=== PATIENT | male | born 1945 | race Hispanic/Latino ===

== ENCOUNTER 2022-08-01 15:31 | Inpatient (IN) | payer MEDICARE ==
[~2022-08-01] VITALS: Ht 160 cm; Wt 71.7 kg
[2022-08-01] MEDS ORDERED: ALBUMIN (HUMAN) 25% 50 ML IV ONE (15:45)
[2022-08-01] MEDS ORDERED: LIDOCAINE PF 100MG/5ML (2%) SYRINGE 5ML IVP ONE (15:45)
[2022-08-01] MEDS ORDERED: PHENYLEPHRINE HCL 10 MG/ML 1ML VIAL IV ONE (15:45)
[2022-08-01] MEDS ORDERED: AMINOCAPROIC ACID 5,000MG VIAL IV ONE (15:45)
[2022-08-01] MEDS ORDERED: CACL 1GM SYG IVP ONE (15:45)
[2022-08-01] MEDS ORDERED: HEPARIN 10,000 UNIT/10ML (1,000 UNIT/ML) VIAL IV ONE (15:45)
[2022-08-01] MEDS ORDERED: MAGNESIUM SULFATE 1 GM/2 ML VIAL IM ONE (15:45)
[2022-08-01] MEDS ORDERED: SODIUM BICARB 8.4% 50ML SYRINGE IVP ONE (15:45)
[2022-08-01 17:44] VITALS: BP 141/71
[2022-08-01] MEDS ORDERED: ACETAMINOPHEN 650 MG SUPPOSITORY RC PRN (18:30)
[2022-08-01] MEDS ORDERED: ACETAMINOPHEN 325 MG TAB PO PRN (18:30)
[2022-08-01] MEDS ORDERED: HYDRALAZINE 20MG/ML VIAL IV PRN (18:30)
[2022-08-01] MEDS ORDERED: TEMAZEPAM 15 MG CAPSULE PO PRN (18:30)
[2022-08-01] MEDS ORDERED: CLONIDINE HCL 0.1 MG TABLET PO PRN (18:30)
[2022-08-01] MEDS ORDERED: LABETALOL 20MG SYG IV PRN (18:30)
[2022-08-01] MEDS ORDERED: ONDANSETRON 4MG INJ IVP PRN (18:30)
[2022-08-01] MEDS ORDERED: DOCUSATE SODIUM 100 MG CAP PO PRN (18:30)
[2022-08-01 20:18] VITALS: BP 174/84
[2022-08-01] MEDS ORDERED: ATORVASTATIN 40 MG TABLET PO SCH (21:00)
[2022-08-01] MEDS ORDERED: GUAIFENESIN-DM 200/20 MG 10 ML PO PRN (23:00)
[2022-08-02] VITALS (32 sets, daily range): BP systolic 44–209; BP diastolic 28–116
[2022-08-02 00:40] LABS: ABG BASE EXCESS 2.7 mmol/L (-2.0-3.0); ABG HCO3 27.7 mmol/L (21.0-28.0); ABG PCO2 44 mmHg (35-48)
[2022-08-02] MEDS: IPRATROPIUM 0.5 MG/2.5 ML INH IH SCH ×3 (00:45→10:57)
[2022-08-02 04:42] LABS: HEMATOCRIT 41.1 % (42-54); MEAN CORPUSCULAR HEMOGLOBIN 28.6 pg (27.0-33.0); MEAN CORPUSCULAR HGB CONC 31.1 g/dL (32.0-36.0); MEAN CORPUSCULAR VOLUME 91.9 fL (79-99); RED BLOOD CELL COUNT(AUTO) 4.47 MIL/uL (4.50-6.20); RED CELL DISTRIBUTION WIDTH 13.4 % (11.0-15.5); WHITE BLOOD COUNT (AUTO) 6.1 K/uL (4.8-10.8)
[2022-08-02 04:57] LABS: HEMOGLOBIN A1C 5.8 % (4.0-6.0)
[2022-08-02 05:05] LABS: PROTHROMBIN TIME 10.9 SEC (9.6-11.6)
[2022-08-02 05:06] LABS: CREATININE 0.8 mg/dL (0.5-1.5); PARTIAL THROMBOPLASTIN TIME 30.8 SEC (26.3-35.5); POTASSIUM 3.8 mmol/L (3.5-5.1)
[2022-08-02 05:16] LABS: ALBUMIN 2.8 g/dL (3.5-5.0); MAGNESIUM 2.2 mg/dL (1.80-2.40); THYROID STIMULATING HORMONE 1.93 uIU/mL (0.36-3.74); TOTAL PROTEIN, SERUM 6.5 g/dL (6.0-8.3)
[2022-08-02] MEDS ORDERED: NOREPINEPHRINE BITARTRATE 8 MG in 0.9% NACL 250ML 250 ML IV PRN (09:00)
[2022-08-02] MEDS ORDERED: EPINEPHRINE PF 1MG (1:1,000) 10 MG in 0.9% NACL 250ML 240 ML IV PRN ×2 (09:00→15:00)
[2022-08-02] MEDS ORDERED: AMINOCAPROIC ACID 5,000MG VIAL 15,000 MG in 0.9% NACL 500ML IV.SOLN 420 ML IV PRN (09:00)
[2022-08-02] MEDS ORDERED: METOPROLOL TARTRATE 25 MG TAB PO SCH (09:30)
[2022-08-02] MEDS ORDERED: CEFAZOLIN SODIUM 1 GM VIAL ONE (10:53)
[2022-08-02] MEDS ORDERED: PAPAVERINE HCL 30 MG/ML 2ML VIAL ONE (10:54)
[2022-08-02] MEDS ORDERED: MANNITOL 20% 500ML BAG 500 ML IV ONE (12:54)
[2022-08-02] MEDS ORDERED: DELNIDO FORMULA 1 BAG IV ONE (12:55)
[2022-08-02] MEDS ORDERED: CEFAZOLIN SODIUM 1 GM VIAL IVP SCH (13:00)
[2022-08-02] MEDS ORDERED: NITROGLYCERIN 50MG/D5W 250ML 1 BOT ONE (13:10)
[2022-08-02] MEDS ORDERED: 0.9%NACL 1000ML 1,000 ML IV ONE ×2 (13:14→13:24)
[2022-08-02] MEDS ORDERED: CEFAZOLIN SODIUM 2 GM VIAL ONE (13:24)
[2022-08-02] MEDS ORDERED: FUROSEMIDE 20MG VIAL IV SCH (13:30)
[2022-08-02] MEDS ORDERED: POTASSIUM CHLORIDE 10% ELIXIR 20 MEQ/15 ML UDCUP PO PRN (13:30)
[2022-08-02] MEDS ORDERED: POTASSIUM CHLORIDE 20MEQ/100ML 100 ML IV PRN ×2 (13:30)
[2022-08-02] MEDS ORDERED: KCL 20 MEQ ERTAB PO PRN (13:30)
[2022-08-02] MEDS ORDERED: LIDOCAINE HCL-MPF 1% 2ML VIAL IV PRN ×2 (13:30)
[2022-08-02] MEDS ORDERED: PROPOFOL 10 MG/ML 20ML VIAL IV ONE ×2 (13:55→17:43)
[2022-08-02] MEDS ORDERED: FENTANYL CITRATE PF 50 MCG/1 ML 20ML VIAL IJ ONE (13:55)
[2022-08-02] MEDS ORDERED: ROCURONIUM 10MG/1ML SYR 10 MG/ML ML ONE (13:56)
[2022-08-02] MEDS ORDERED: MIDAZOLAM HCL 1 MG/ML 2ML VIAL ONE (13:56)
[2022-08-02] MEDS ORDERED: ONDANSETRON 4MG INJ ONE (13:57)
[2022-08-02 14:51] LABS: ABG BASE EXCESS 1.1 mmol/L (-2.0-3.0); ABG HCO3 25.8 mmol/L (21.0-28.0); ABG OXYGEN SATURATION 99.8 % (95.0-99.0); ABG PCO2 41 mmHg (35-48)
[2022-08-02] MEDS ORDERED: POTASSIUM PHOS 15 mMOL+NS250ML 250 ML IV PRN (15:00)
[2022-08-02] MEDS ORDERED: AMINOCAPROIC ACID 5,000MG VIAL 15,000 MG in 0.9% NACL 250ML 250 ML IV SCH (15:00)
[2022-08-02] MEDS ORDERED: MAGNESIUM 2GM PREMIX 50ML 50 ML IV PRN (15:00)
[2022-08-02] MEDS ORDERED: GLUCAGON 1MG KIT 1 MG ML IM PRN (15:00)
[2022-08-02] MEDS ORDERED: ONDANSETRON 4MG INJ IV PRN (15:00)
[2022-08-02] MEDS ORDERED: INSULIN REGULAR, HUMAN 3ML 100 UNIT in 0.9%NACL 100ML 99 ML IV SCH ×2 (15:00)
[2022-08-02] MEDS ORDERED: 0.9%NACL 10ML VIAL IVP PRN (15:00)
[2022-08-02] MEDS ORDERED: ALBUMIN (HUMAN) 5% 250 ML IV PRN (15:00)
[2022-08-02] MEDS ORDERED: 0.9%NACL 1000ML 1,000 ML IV SCH (15:00)
[2022-08-02] MEDS ORDERED: MORPHINE 4 MG SYG IV PRN (15:00)
[2022-08-02] MEDS ORDERED: MORPHINE 2 MG SYG IV PRN (15:00)
[2022-08-02] MEDS ORDERED: DEXTROSE 50%-WATER 50 ML DISP.SYRIN IV PRN (15:00)
[2022-08-02] MEDS ORDERED: 0.9% NACL 500ML IV.SOLN 500 ML IV SCH (15:00)
[2022-08-02] MEDS ORDERED: NOREPINEPHRIN 4MG/NS 250ML 250 ML IV PRN (15:00)
[2022-08-02] MEDS ORDERED: TRAMADOL HCL 50 MG TABLET PO PRN (15:00)
[2022-08-02] MEDS ORDERED: CALCIUM GLUC 1GM 1 GM in 0.9%NACL 50ML 50 ML IV PRN (15:00)
[2022-08-02] MEDS ORDERED: NITROGLYCERIN 50MG/D5W 250ML 250 BOT IV SCH (15:00)
[2022-08-02] MEDS ORDERED: ACETAMINOPHEN 650 MG SUPPOSITORY RC PRN (15:00)
[2022-08-02] MEDS ORDERED: PROPOFOL 1000 MG/100 ML 100 ML IV PRN (15:00)
[2022-08-02 15:43] LABS: ABG BASE EXCESS -2.8 mmol/L (-2.0-3.0); ABG HCO3 21.7 mmol/L (21.0-28.0); ABG OXYGEN SATURATION 99.8 % (95.0-99.0); ABG PCO2 37 mmHg (35-48)
[2022-08-02] MEDS ORDERED: AMIODARONE 150MG VIAL ONE (15:48)
[2022-08-02 16:08] LABS: ABG BASE EXCESS -5.8 mmol/L (-2.0-3.0); ABG HCO3 18.2 mmol/L (21.0-28.0); ABG OXYGEN SATURATION 99.5 % (95.0-99.0); ABG PCO2 30 mmHg (35-48)
[2022-08-02 16:38] LABS: ABG BASE EXCESS 0.3 mmol/L (-2.0-3.0); ABG HCO3 24.3 mmol/L (21.0-28.0); ABG OXYGEN SATURATION 99.3 % (95.0-99.0); ABG PCO2 37 mmHg (35-48)
[2022-08-02 17:33] LABS: ABG BASE EXCESS -6.5 mmol/L (-2.0-3.0); ABG HCO3 18.8 mmol/L (21.0-28.0); ABG OXYGEN SATURATION 99.6 % (95.0-99.0); ABG PCO2 37 mmHg (35-48)
[2022-08-02 18:12] LABS: ABG BASE EXCESS -0.5 mmol/L (-2.0-3.0); ABG HCO3 25.7 mmol/L (21.0-28.0); ABG PCO2 49 mmHg (35-48)
[2022-08-02 18:20] LABS: HEMATOCRIT 33.4 % (42-54); MEAN CORPUSCULAR HEMOGLOBIN 28.5 pg (27.0-33.0); MEAN CORPUSCULAR HGB CONC 31.4 g/dL (32.0-36.0); MEAN CORPUSCULAR VOLUME 90.5 fL (79-99); RED BLOOD CELL COUNT(AUTO) 3.69 MIL/uL (4.50-6.20); RED CELL DISTRIBUTION WIDTH 13.2 % (11.0-15.5); WHITE BLOOD COUNT (AUTO) 28.2 K/uL (4.8-10.8)
[2022-08-02] MEDS: POTASSIUM CHLORIDE 20MEQ/100ML 100 ML IV PRN ×3 (18:24→22:34)
[2022-08-02] MEDS: SODIUM BICARB 50MEQ 50ML VIAL IV PRN ×3 (18:24→23:21)
[2022-08-02 18:29] LABS: INR 1.22 (0.85-1.15); PROTHROMBIN TIME 13.1 SEC (9.6-11.6)
[2022-08-02 18:30] LABS: CREATININE 0.8 mg/dL (0.5-1.5); MAGNESIUM 2.9 mg/dL (1.80-2.40); PHOSPHORUS 4.2 mg/dL (2.5-4.9); POTASSIUM 3.7 mmol/L (3.5-5.1)
[2022-08-02 18:31] LABS: PARTIAL THROMBOPLASTIN TIME 28.4 SEC (26.3-35.5)
[2022-08-02 19:16] LABS: ABG BASE EXCESS 1.2 mmol/L (-2.0-3.0); ABG HCO3 28.2 mmol/L (21.0-28.0); ABG OXYGEN SATURATION 93.1 % (95.0-99.0); ABG PCO2 55 mmHg (35-48)
[2022-08-02 20:18] LABS: ABG HCO3 26.7 mmol/L (21.0-28.0); ABG PCO2 52 mmHg (35-48)
[2022-08-02] MEDS ORDERED: PANTOPRAZOLE 40 MG/VIAL IVP SCH (21:00)
[2022-08-02 21:19] LABS: ABG BASE EXCESS -2.4 mmol/L (-2.0-3.0); ABG HCO3 23.9 mmol/L (21.0-28.0); ABG OXYGEN SATURATION 96.5 % (95.0-99.0); ABG PCO2 47 mmHg (35-48)
[2022-08-02] MEDS: CEFAZOLIN SODIUM 1 GM VIAL IV SCH (21:26)
[2022-08-02] MEDS: FAMOTIDINE 20MG VIAL IV SCH (21:26)
[2022-08-02 22:20] LABS: ABG BASE EXCESS 0.2 mmol/L (-2.0-3.0); ABG HCO3 25.9 mmol/L (21.0-28.0); ABG OXYGEN SATURATION 96.9 % (95.0-99.0); ABG PCO2 46 mmHg (35-48)
[2022-08-02] MEDS ORDERED: LACTATED RINGERS 1000ML 1,000 ML IV ONE (22:48)
[2022-08-02 23:17] LABS: ABG BASE EXCESS -1.3 mmol/L (-2.0-3.0); ABG HCO3 24.2 mmol/L (21.0-28.0); ABG OXYGEN SATURATION 97.2 % (95.0-99.0); ABG PCO2 44 mmHg (35-48)
[2022-08-03] VITALS (124 sets, daily range): BP systolic 78–271; BP diastolic 17–264
[2022-08-03 00:17] LABS: ABG BASE EXCESS 3.2 mmol/L (-2.0-3.0); ABG HCO3 28.4 mmol/L (21.0-28.0); ABG PCO2 46 mmHg (35-48)
[2022-08-03] MEDS: POTASSIUM CHLORIDE 20MEQ/100ML 100 ML IV PRN ×2 (00:25→21:02)
[2022-08-03 01:14] LABS: ABG BASE EXCESS 4.6 mmol/L (-2.0-3.0); ABG HCO3 29.8 mmol/L (21.0-28.0); ABG OXYGEN SATURATION 97.3 % (95.0-99.0); ABG PCO2 47 mmHg (35-48)
[2022-08-03 02:22] LABS: ABG BASE EXCESS 4.5 mmol/L (-2.0-3.0); ABG HCO3 29.4 mmol/L (21.0-28.0); ABG OXYGEN SATURATION 96.4 % (95.0-99.0); ABG PCO2 45 mmHg (35-48)
[2022-08-03 03:34] LABS: ABG BASE EXCESS 4.2 mmol/L (-2.0-3.0); ABG HCO3 29.2 mmol/L (21.0-28.0); ABG PCO2 46 mmHg (35-48)
[2022-08-03 04:08] LABS: HEMATOCRIT 34.9 % (42-54); MEAN CORPUSCULAR HEMOGLOBIN 28.8 pg (27.0-33.0); MEAN CORPUSCULAR HGB CONC 30.7 g/dL (32.0-36.0); MEAN CORPUSCULAR VOLUME 93.8 fL (79-99); PLATELET COUNT (AUTO) 166 K/uL (130-400); RED BLOOD CELL COUNT(AUTO) 3.72 MIL/uL (4.50-6.20); RED CELL DISTRIBUTION WIDTH 13.5 % (11.0-15.5); WHITE BLOOD COUNT (AUTO) 18.7 K/uL (4.8-10.8)
[2022-08-03] MEDS: ACETAMINOPHEN 325 MG TAB PO PRN (04:10)
[2022-08-03 04:20] LABS: INR 1.07 (0.85-1.15); PROTHROMBIN TIME 11.6 SEC (9.6-11.6)
[2022-08-03 04:22] LABS: PARTIAL THROMBOPLASTIN TIME 32.1 SEC (26.3-35.5)
[2022-08-03] MEDS: CEFAZOLIN SODIUM 1 GM VIAL IV SCH ×2 (04:28→12:56)
[2022-08-03 04:30] LABS: CREATININE 1.1 mg/dL (0.5-1.5); MAGNESIUM 2.5 mg/dL (1.80-2.40); PHOSPHORUS 1.6 mg/dL (2.5-4.9); POTASSIUM 4.5 mmol/L (3.5-5.1)
[2022-08-03] MEDS: TRAMADOL HCL 50 MG TABLET PO PRN (04:34)
[2022-08-03 05:35] LABS: B-TYPE NATRIURETIC PEPTIDE 626 pg/mL (0-100)
[2022-08-03] MEDS: ASPIRIN 81 MG EC TAB PO SCH (08:35)
[2022-08-03] MEDS: FAMOTIDINE 20MG VIAL IV SCH ×2 (08:35→21:07)
[2022-08-03] MEDS ORDERED: FUROSEMIDE 20MG VIAL IV SCH (09:00)
[2022-08-03] MEDS: IPRATROPIUM 0.5 MG/2.5 ML INH IH SCH ×2 (11:08→20:27)
[2022-08-03] MEDS: ACETYLCYSTEINE 20% 200MG/ML 4ML VIAL IH SCH ×2 (11:08→20:27)
[2022-08-03] MEDS ORDERED: FUROSEMIDE 40MG VIAL ONE (17:40)
[2022-08-03] MEDS: FUROSEMIDE 40MG VIAL IV SCH (18:21)
[2022-08-03 18:59] LABS: POTASSIUM 3.8 mmol/L (3.5-5.1)
[2022-08-04] VITALS (81 sets, daily range): BP systolic 77–221; BP diastolic 29–92
[2022-08-04] MEDS: IPRATROPIUM 0.5 MG/2.5 ML INH IH SCH ×2 (00:36→06:40)
[2022-08-04 04:07] LABS: HEMATOCRIT 30.3 % (42-54); MEAN CORPUSCULAR HEMOGLOBIN 28.9 pg (27.0-33.0); MEAN CORPUSCULAR VOLUME 90.2 fL (79-99); RED BLOOD CELL COUNT(AUTO) 3.36 MIL/uL (4.50-6.20); RED CELL DISTRIBUTION WIDTH 13.6 % (11.0-15.5); WHITE BLOOD COUNT (AUTO) 18.7 K/uL (4.8-10.8)
[2022-08-04 04:20] LABS: CREATININE 0.8 mg/dL (0.5-1.5); INR 1.09 (0.85-1.15); MAGNESIUM 2.1 mg/dL (1.80-2.40); POTASSIUM 4.5 mmol/L (3.5-5.1); PROTHROMBIN TIME 11.8 SEC (9.6-11.6)
[2022-08-04 04:21] LABS: PARTIAL THROMBOPLASTIN TIME 31.3 SEC (26.3-35.5)
[2022-08-04] MEDS: FUROSEMIDE 40MG VIAL IV SCH (05:25)
[2022-08-04] MEDS: ACETYLCYSTEINE 20% 200MG/ML 4ML VIAL IH SCH ×2 (06:40→18:42)
[2022-08-04] MEDS: ASPIRIN 81 MG EC TAB PO SCH (08:54)
[2022-08-04] MEDS: FAMOTIDINE 20MG VIAL IV SCH ×2 (08:54→20:41)
[2022-08-04] MEDS: METOPROLOL TARTRATE 25 MG TAB PO SCH ×2 (08:55→20:45)
[2022-08-04] MEDS: FUROSEMIDE 20 MG TABLET PO SCH ×2 (09:00→16:23)
[2022-08-04] MEDS: INSULIN HUMULIN R 100 UNIT/ML 3ML SQ SCH ×3 (11:00→20:44)
[2022-08-04] MEDS: IPRATROPIUM/ALBUTEROL SULFATE 3 ML SOLUTION IH SCH ×3 (11:17→23:00)
[2022-08-05] VITALS (54 sets, daily range): BP systolic 73–179; BP diastolic 29–82
[2022-08-05 04:36] LABS: HEMATOCRIT 31.3 % (42-54); MEAN CORPUSCULAR HEMOGLOBIN 28.5 pg (27.0-33.0); MEAN CORPUSCULAR VOLUME 94.8 fL (79-99); RED BLOOD CELL COUNT(AUTO) 3.3 MIL/uL (4.50-6.20); RED CELL DISTRIBUTION WIDTH 13.2 % (11.0-15.5)
[2022-08-05 04:43] LABS: CREATININE 0.8 mg/dL (0.5-1.5); MAGNESIUM 2.3 mg/dL (1.80-2.40); POTASSIUM 4.5 mmol/L (3.5-5.1)
[2022-08-05] MEDS: TRAMADOL HCL 50 MG TABLET PO PRN ×2 (05:05→17:39)
[2022-08-05] MEDS: ACETYLCYSTEINE 20% 200MG/ML 4ML VIAL IH SCH ×2 (06:51→18:28)
[2022-08-05] MEDS: IPRATROPIUM/ALBUTEROL SULFATE 3 ML SOLUTION IH SCH ×4 (06:51→23:00)
[2022-08-05] MEDS: INSULIN HUMULIN R 100 UNIT/ML 3ML SQ SCH ×4 (07:20→21:00)
[2022-08-05] MEDS: ACETAMINOPHEN 325 MG TAB PO PRN (07:47)
[2022-08-05] MEDS: FAMOTIDINE 20MG VIAL IV SCH ×2 (07:48→20:14)
[2022-08-05] MEDS: ASPIRIN 81 MG EC TAB PO SCH (07:48)
[2022-08-05] MEDS: FUROSEMIDE 20 MG TABLET PO SCH ×2 (07:48→17:39)
[2022-08-05] MEDS: METOPROLOL TARTRATE 25 MG TAB PO SCH ×2 (07:48→20:14)
[2022-08-05] MEDS: ENOXAPARIN SODIUM 30 MG/0.3 ML SQ SCH (07:49)
[2022-08-06] VITALS (23 sets, daily range): BP systolic 91–144; BP diastolic 36–69
[2022-08-06 03:45] LABS: BASOPHILS % (AUTO) 0.2 % (0.0-5.0); EOSINOPHILS % (AUTO) 1.2 % (0.0-8.0); HEMATOCRIT 28.4 % (42-54); LYMPHOCYTES % (AUTO) 14.2 % (21.0-51.0); MEAN CORPUSCULAR HEMOGLOBIN 28.6 pg (27.0-33.0); MEAN CORPUSCULAR VOLUME 92.2 fL (79-99); MONOCYTES % (AUTO) 7.8 % (3.0-13.0); NEUTROPHILS % (AUTO) 76.1 % (40.0-77.0); PLATELET COUNT (AUTO) 166 K/uL (130-400); RED BLOOD CELL COUNT(AUTO) 3.08 MIL/uL (4.50-6.20); RED CELL DISTRIBUTION WIDTH 13.3 % (11.0-15.5); WHITE BLOOD COUNT (AUTO) 12.8 K/uL (4.8-10.8)
[2022-08-06 04:07] LABS: ALBUMIN 2.2 g/dL (3.5-5.0); CREATININE 0.8 mg/dL (0.5-1.5); MAGNESIUM 2.3 mg/dL (1.80-2.40); POTASSIUM 3.8 mmol/L (3.5-5.1); TOTAL PROTEIN, SERUM 5.7 g/dL (6.0-8.3)
[2022-08-06] MEDS: POTASSIUM CHLORIDE 20MEQ/100ML 100 ML IV PRN (04:56)
[2022-08-06] MEDS: INSULIN HUMULIN R 100 UNIT/ML 3ML SQ SCH ×4 (05:53→20:15)
[2022-08-06] MEDS: IPRATROPIUM/ALBUTEROL SULFATE 3 ML SOLUTION IH SCH ×4 (06:25→23:35)
[2022-08-06] MEDS: ACETYLCYSTEINE 20% 200MG/ML 4ML VIAL IH SCH ×2 (06:26→18:20)
[2022-08-06] MEDS: ENOXAPARIN SODIUM 30 MG/0.3 ML SQ SCH (08:45)
[2022-08-06] MEDS: TRAMADOL HCL 50 MG TABLET PO PRN (08:45)
[2022-08-06] MEDS: ASPIRIN 81 MG EC TAB PO SCH (08:46)
[2022-08-06] MEDS: METOPROLOL TARTRATE 25 MG TAB PO SCH ×2 (08:46→19:58)
[2022-08-06] MEDS: FUROSEMIDE 20 MG TABLET PO SCH ×2 (08:46→17:55)
[2022-08-06] MEDS: FAMOTIDINE 20MG VIAL IV SCH ×2 (08:47→19:58)
[2022-08-07] VITALS (31 sets, daily range): BP systolic 93–160; BP diastolic 43–107
[2022-08-07 03:29] LABS: HEMATOCRIT 28.7 % (42-54); MEAN CORPUSCULAR HEMOGLOBIN 28.4 pg (27.0-33.0); MEAN CORPUSCULAR VOLUME 91.7 fL (79-99); RED BLOOD CELL COUNT(AUTO) 3.13 MIL/uL (4.50-6.20); RED CELL DISTRIBUTION WIDTH 13.2 % (11.0-15.5); WHITE BLOOD COUNT (AUTO) 12.3 K/uL (4.8-10.8)
[2022-08-07 03:46] LABS: CREATININE 0.7 mg/dL (0.5-1.5); MAGNESIUM 2.2 mg/dL (1.80-2.40); POTASSIUM 3.4 mmol/L (3.5-5.1)
[2022-08-07] MEDS: INSULIN HUMULIN R 100 UNIT/ML 3ML SQ SCH ×4 (03:56→19:49)
[2022-08-07] MEDS: POTASSIUM CHLORIDE 20MEQ/100ML 100 ML IV PRN ×3 (05:18→14:04)
[2022-08-07] MEDS: ACETYLCYSTEINE 20% 200MG/ML 4ML VIAL IH SCH ×2 (06:26→18:58)
[2022-08-07] MEDS: IPRATROPIUM/ALBUTEROL SULFATE 3 ML SOLUTION IH SCH ×4 (06:26→23:43)
[2022-08-07] MEDS: FAMOTIDINE 20MG VIAL IV SCH ×2 (09:50→21:36)
[2022-08-07] MEDS: METOPROLOL TARTRATE 25 MG TAB PO SCH ×2 (09:51→21:37)
[2022-08-07] MEDS: ENOXAPARIN SODIUM 30 MG/0.3 ML SQ SCH (09:51)
[2022-08-07] MEDS: ASPIRIN 81 MG EC TAB PO SCH (09:51)
[2022-08-07] MEDS: FUROSEMIDE 20 MG TABLET PO SCH ×2 (09:56→21:36)
[2022-08-07] MEDS ORDERED: VANCOMYCIN 1G 1 GM in 0.9% NACL 250ML 250 ML IV PRN (11:00)
[2022-08-07] MEDS ORDERED: VANCOMYCIN 1G/250ML KIT 250 ML IV PRN (11:30)
[2022-08-07] MEDS ORDERED: BUPIVACAINE/PF 0.25% 30ML VIAL IJ ONE (14:39)
[2022-08-07] MEDS ORDERED: LIDOCAINE HCL 1% 20 ML VIAL ONE (14:39)
[2022-08-07] MEDS ORDERED: MIDAZOLAM HCL 1 MG/ML 2ML VIAL ONE (14:40)
[2022-08-07] MEDS ORDERED: MEPERIDINE-PF 50 MG/ML SYG ONE ×2 (14:40→16:20)
[2022-08-07] MEDS ORDERED: IOHEXOL-350 50ML VIAL IV ONE (15:30)
[2022-08-07] MEDS ORDERED: ACETAMINOPHEN 500 MG TABLET PO PRN (17:30)
[2022-08-08] VITALS (22 sets, daily range): BP systolic 96–175; BP diastolic 49–87
[2022-08-08 03:35] LABS: BASOPHILS % (AUTO) 0.4 % (0.0-5.0); EOSINOPHILS % (AUTO) 3.8 % (0.0-8.0); HEMATOCRIT 27.4 % (42-54); LYMPHOCYTES % (AUTO) 12.6 % (21.0-51.0); MEAN CORPUSCULAR HEMOGLOBIN 28.4 pg (27.0-33.0); MEAN CORPUSCULAR HGB CONC 32.1 g/dL (32.0-36.0); MEAN CORPUSCULAR VOLUME 88.4 fL (79-99); NEUTROPHILS % (AUTO) 72.9 % (40.0-77.0); NUCLEATED RED BLOOD CELLS 0.2 % (0.0-0.19); PLATELET COUNT (AUTO) 264 K/uL (130-400); RED CELL DISTRIBUTION WIDTH 13.2 % (11.0-15.5); WHITE BLOOD COUNT (AUTO) 10.9 K/uL (4.8-10.8)
[2022-08-08 03:40] LABS: CREATININE 0.7 mg/dL (0.5-1.5); POTASSIUM 3.7 mmol/L (3.5-5.1)
[2022-08-08] MEDS: IPRATROPIUM/ALBUTEROL SULFATE 3 ML SOLUTION IH SCH ×3 (06:15→19:05)
[2022-08-08] MEDS: ACETYLCYSTEINE 20% 200MG/ML 4ML VIAL IH SCH ×2 (06:16→19:06)
[2022-08-08] MEDS: POTASSIUM CHLORIDE 20MEQ/100ML 100 ML IV PRN (06:19)
[2022-08-08] MEDS: INSULIN HUMULIN R 100 UNIT/ML 3ML SQ SCH ×4 (07:30→20:50)
[2022-08-08] MEDS: FAMOTIDINE 20MG VIAL IV SCH ×2 (08:01→21:00)
[2022-08-08] MEDS: METOPROLOL TARTRATE 25 MG TAB PO SCH ×2 (08:02→21:00)
[2022-08-08] MEDS: ENOXAPARIN SODIUM 30 MG/0.3 ML SQ SCH (08:02)
[2022-08-08] MEDS: FUROSEMIDE 20 MG TABLET PO SCH ×2 (08:02→16:44)
[2022-08-08] MEDS: ASPIRIN 81 MG EC TAB PO SCH (08:02)
[2022-08-08] MEDS ORDERED: GUAIFENESIN SUGAR-FREE 100 MG/5 ML UDCUP PO PRN ×2 (16:00→16:30)
[2022-08-09] MEDS: IPRATROPIUM/ALBUTEROL SULFATE 3 ML SOLUTION IH SCH ×4 (00:22→19:01)
[2022-08-09] MEDS: ACETAMINOPHEN 325 MG TAB PO PRN (02:33)
[2022-08-09 03:30] VITALS: BP 146/69
[2022-08-09 03:38] LABS: BASOPHILS % (AUTO) 0.3 % (0.0-5.0); EOSINOPHILS % (AUTO) 3.1 % (0.0-8.0); LYMPHOCYTES % (AUTO) 11.9 % (21.0-51.0); MEAN CORPUSCULAR HEMOGLOBIN 28.5 pg (27.0-33.0); MEAN CORPUSCULAR HGB CONC 30.7 g/dL (32.0-36.0); MEAN CORPUSCULAR VOLUME 92.8 fL (79-99); MONOCYTES % (AUTO) 8.5 % (3.0-13.0); NEUTROPHILS % (AUTO) 74.8 % (40.0-77.0); PLATELET COUNT (AUTO) 304 K/uL (130-400); RED BLOOD CELL COUNT(AUTO) 2.91 MIL/uL (4.50-6.20); RED CELL DISTRIBUTION WIDTH 13.2 % (11.0-15.5); WHITE BLOOD COUNT (AUTO) 11.2 K/uL (4.8-10.8)
[2022-08-09 03:55] LABS: CREATININE 0.6 mg/dL (0.5-1.5); POTASSIUM 3.5 mmol/L (3.5-5.1)
[2022-08-09] MEDS: INSULIN HUMULIN R 100 UNIT/ML 3ML SQ SCH ×4 (06:02→20:20)
[2022-08-09 07:28] VITALS: BP 134/57
[2022-08-09] MEDS: ASPIRIN 81 MG EC TAB PO SCH (08:21)
[2022-08-09] MEDS: ENOXAPARIN SODIUM 30 MG/0.3 ML SQ SCH (08:21)
[2022-08-09] MEDS: FUROSEMIDE 20 MG TABLET PO SCH ×2 (08:21→16:13)
[2022-08-09] MEDS: FAMOTIDINE 20MG VIAL IV SCH ×2 (08:21→20:14)
[2022-08-09] MEDS: METOPROLOL TARTRATE 25 MG TAB PO SCH ×2 (08:22→20:15)
[2022-08-09 11:45] VITALS: BP 117/54
[2022-08-09 15:52] VITALS: BP 131/64
[2022-08-09 19:15] VITALS: BP 120/53
[2022-08-09] MEDS: ACETAMINOPHEN WITH CODEINE 1 TAB TAB PO PRN (22:36)
[2022-08-09 23:18] VITALS: BP 141/54
[2022-08-10] MEDS: IPRATROPIUM/ALBUTEROL SULFATE 3 ML SOLUTION IH SCH ×3 (00:05→11:46)
[2022-08-10] MEDS: ACETAMINOPHEN WITH CODEINE 1 TAB TAB PO PRN (02:25)
[2022-08-10 03:10] VITALS: BP 155/71
[2022-08-10 03:23] LABS: BASOPHILS % (AUTO) 0.5 % (0.0-5.0); EOSINOPHILS % (AUTO) 4.5 % (0.0-8.0); HEMATOCRIT 27.1 % (42-54); LYMPHOCYTES % (AUTO) 19.2 % (21.0-51.0); MEAN CORPUSCULAR HGB CONC 31.4 g/dL (32.0-36.0); MEAN CORPUSCULAR VOLUME 92.5 fL (79-99); MONOCYTES % (AUTO) 8.7 % (3.0-13.0); NEUTROPHILS % (AUTO) 65.4 % (40.0-77.0); PLATELET COUNT (AUTO) 352 K/uL (130-400); RED BLOOD CELL COUNT(AUTO) 2.93 MIL/uL (4.50-6.20); RED CELL DISTRIBUTION WIDTH 13.6 % (11.0-15.5); WHITE BLOOD COUNT (AUTO) 10.2 K/uL (4.8-10.8)
[2022-08-10 03:34] LABS: CREATININE 0.8 mg/dL (0.5-1.5); POTASSIUM 3.9 mmol/L (3.5-5.1)
[2022-08-10] MEDS: INSULIN HUMULIN R 100 UNIT/ML 3ML SQ SCH ×3 (06:27→15:42)
[2022-08-10] MEDS ORDERED: METO25 PO (06:48)
[2022-08-10] MEDS ORDERED: FURO20TA6 PO (06:48)
[2022-08-10] MEDS ORDERED: AEC81 PO (06:48)
[2022-08-10] MEDS ORDERED: TRAZ-253 PO (07:28)
[2022-08-10] MEDS ORDERED: ATOR40TA71 PO (07:28)
[2022-08-10] MEDS ORDERED: LOSA25TA41 PO (07:28)
[2022-08-10] MEDS ORDERED: CEPH250C3 PO (07:28)
[2022-08-10] MEDS ORDERED: ASPI-1443 PO (07:28)
[2022-08-10] MEDS ORDERED: FURO40TA5 PO (07:28)
[2022-08-10] MEDS ORDERED: SPIR25TA6 PO (07:28)
[2022-08-10] MEDS ORDERED: CETI10TA57 PO (07:28)
[2022-08-10] MEDS ORDERED: PANT40TA54 PO (07:28)
[2022-08-10] MEDS ORDERED: BENZ200C53 PO (07:28)
[2022-08-10] MEDS ORDERED: HYDR-4064 PO (07:28)
[2022-08-10] MEDS ORDERED: LISI20TA24 PO (07:28)
[2022-08-10] MEDS: FAMOTIDINE 20MG VIAL IV SCH (07:29)
[2022-08-10] MEDS: ASPIRIN 81 MG EC TAB PO SCH (07:29)
[2022-08-10] MEDS: METOPROLOL TARTRATE 25 MG TAB PO SCH (07:29)
[2022-08-10] MEDS: FUROSEMIDE 20 MG TABLET PO SCH ×2 (07:29→16:41)
[2022-08-10] MEDS: ENOXAPARIN SODIUM 30 MG/0.3 ML SQ SCH (07:31)
[2022-08-10 07:44] VITALS: BP 108/65
[2022-08-10 12:30] VITALS: BP 131/48
[2022-08-10 16:12] VITALS: BP 126/55
== END 2022-08-10 18:20 | DRG 235 ==
LOC: 2AH 16:58 → 2CV 08-02 13:37 → 2CH 08-04 02:43 → 2AH 08-08 13:07
PROVIDERS: ADMIT Internal Medicine Critical Care Medicine; ATTEND Internal Medicine Critical Care Medicine
PROC: 06BQ4ZZ Excision of Left Saphenous Vein, Percutaneous Endoscopic Approach (ICD-10-PCS; 2022-08-02)
PROC: 0210093 Bypass Coronary Artery, One Artery from Coronary Artery with Autologous Venous Tissue, Open Approach (ICD-10-PCS; principal; 2022-08-02 14:01)
PROC: 02100Z9 Bypass Coronary Artery, One Artery from Left Internal Mammary, Open Approach (ICD-10-PCS; 2022-08-02 14:01)
PROC: 0JH608Z Insertion of Defibrillator Generator into Chest Subcutaneous Tissue and Fascia, Open Approach (ICD-10-PCS; 2022-08-07)
PROC: 02HK0KZ Insertion of Defibrillator Lead into Right Ventricle, Open Approach (ICD-10-PCS; 2022-08-07)
PROC: 0JPT0PZ Removal of Cardiac Rhythm Related Device from Trunk Subcutaneous Tissue and Fascia, Open Approach (ICD-10-PCS; 2022-08-07)
PROC: 02PA3MZ Removal of Cardiac Lead from Heart, Percutaneous Approach (ICD-10-PCS; 2022-08-07)
DX: T82.190A Other mechanical complication of cardiac electrode, initial encounter (principal); I21.4 Non-ST elevation (NSTEMI) myocardial infarction; J96.01 Acute respiratory failure with hypoxia; J18.9 Pneumonia, unspecified organism; I50.43 Acute on chronic combined systolic (congestive) and diastolic (congestive) heart failure; D62 Acute posthemorrhagic anemia; Z20.822 Contact with and (suspected) exposure to COVID-19; I25.10 Atherosclerotic heart disease of native coronary artery without angina pectoris; I11.0 Hypertensive heart disease with heart failure; E78.2 Mixed hyperlipidemia; I25.5 Ischemic cardiomyopathy; I44.1 Atrioventricular block, second degree; Y71.2 Prosthetic and other implants, materials and accessory cardiovascular devices associated with adverse incidents; E11.9 Type 2 diabetes mellitus without complications; Y83.8 Other surgical procedures as the cause of abnormal reaction of the patient, or of later complication, without mention of misadventure at the time of the procedure; Z95.5 Presence of coronary angioplasty implant and graft; Y92.89 Other specified places as the place of occurrence of the external cause; Z79.82 Long term (current) use of aspirin; Z79.899 Other long term (current) drug therapy; Z82.49 Family history of ischemic heart disease and other diseases of the circulatory system; Z87.891 Personal history of nicotine dependence; Z95.810 Presence of automatic (implantable) cardiac defibrillator
CPT/HCPCS: 33225; 33233; 33234; 33249; 36415; 36600; 71045; 80048; 80053; 80061; 82435; 82803; 82947; 82948; 83036; 83605; 83735; 83880; 84100; 84132; 84295; 84443; 85018; 85025; 85027; 85347; 85610; 85730; 86850; 86900; 86901; 86923; 87635; 87641; 93005; 93306; 93880; 94002; 94003; 94010; 94150; 94640; 94660; 94664; 94667; 94668; 97039; 99156; 99157; A7048; C1729; C1769; G0378; J0282; J0610; J0690; J1644; J1650; J1815; J1940; J2001; J2175; J2250; J2370; J2405; J2440; J2704; J3010; J3370; J3475; J3480; J3490; J7030; J7040; J7120; J7608; P9045; P9047; Q9967